=== PATIENT | male | born 1995 | race Caucasian/White ===

== ENCOUNTER 2019-07-30 09:17 | Emergency (ER) | payer OTHER, SELFPAY ==
--- NOTE | 2019-07-30 10:17 | EDPHYS ---
Physician Documentation [facility] Name: Jean Carlos Velazquez Age: 23 yrs Sex: Male : 1995 Arrival Date: 07/30/2019 Time: 09:20 Bed 23 Private MD: ED Physician Ruddy Bach HPI: 07/30 07:18 This 23 yrs old Male presents to ER via Ambulatory with complaints of Rash. kdr 07:18 The patient's rash thought to be caused by an unknown cause, Bilateral groin. The rash kdr is located on the right femoral area and left femoral area. The rash can be described as erythematous, macular. Onset: The symptoms/episode began/occurred gradually, 2 week(s) ago. Associated signs and symptoms: Pertinent positives: None. Pertinent negatives: None. Severity of symptoms: At their worst the symptoms were mild in the emergency department the symptoms are unchanged. Treatment given at home: None. The patient has not experienced similar symptoms in the past. The patient has not recently seen a physician. Historical: - Allergies: 07/29 09:57 No Known Allergies; ss - Home Meds: 09:57 None [Active]; ss - PMHx: 09:57 None; ss - PSHx: 09:57 knee repair; ss - Immunization history:: Adult Immunizations up to date. - Social history:: Smoking status: Patient denies any tobacco usage or history of. ROS: 07/30 07:18 Constitutional: Negative for fever, chills, and weight loss. kdr Skin: Positive for rash. Exam: 07:18 Male : Normal genitalia with no discharge or lesions. kdr 07:18 Skin: rash a mild rash is noted, rash can be described as erythematous, macular, Tinea cruris . Vital Signs: 07/29 09:56 BP 124 / 76; Pulse 62; Resp 16; Temp 98.9(TE); Pulse Ox 100% on R/A; Weight 90.72 kg; ss Height 5 ft. 11 in. (180.34 cm); Pain 0/10; 09:56 Body Mass Index 27.89 (90.72 kg, 180.34 cm) MDM: 10:16 Patient medically screened. kdr 07/30 07:18 Data reviewed: vital signs, nurses notes. Counseling: I had a detailed discussion with kdr the patient and/or guardian regarding: the historical points, exam findings, and any diagnostic results supporting the discharge/admit diagnosis, the need for outpatient follow up. Administered Medications: No medications were administered Disposition: 07/30/19 10:16 Discharged to Home. Impression: Tinea cruris. - Condition is Stable. - Discharge Instructions: Jock Itch, [id number]. - Prescriptions for terbinafine HCl 1 % Topical cream - apply 1 application by TOPICAL route 2 times per day for 7 days; 1 tube. - Medication Reconciliation Form, Thank You Letter, Antibiotic Education form. - Follow up: Private Physician; When: 2 - 3 days; Reason: If symptoms return, Further diagnostic work-up, Recheck today's complaints, Continuance of care, Re-evaluation by your physician. - Problem is new. - Symptoms are unchanged. Signatures: Ruddy Bach MD MD kdr Sol Salmeron RN RN ss Corrections: (The following items were deleted from the chart) 07/29 10:29 10:16 07/30/2019 10:16 Discharged to Home. Impression: Tinea cruris. Condition is ss Stable. Forms are Medication Reconciliation Form, Thank You Letter, Antibiotic Education, Prescription Opioid Use. Follow up: Private Physician; When: 2 - 3 days; Reason: If symptoms return, Further diagnostic work-up, Recheck today's complaints, Continuance of care, Re-evaluation by your physician. Problem is new. Symptoms are unchanged. kdr
--- NOTE | 2019-07-30 10:17 | ER ---
Nurse's Notes [facility] Name: Jean Carlos Velazquez Age: 23 yrs Sex: Male : 1995 Arrival Date: 07/30/2019 Time: 09:20 Bed 23 Private MD: Diagnosis: Tinea cruris Presentation: 07/29 09:56 Chief complaint: Patient states: Rash to groin that began 2 weeks ago. Coronavirus ss screen: Proceed with normal triage. Patient denies a cough. Patient denies shortness of breath or difficulty breathing. Patient denies measured and/or subjective temperature greater than 100.4F prior to today's visit. Patient denies travel on a cruise ship or to a country the [facility] currently lists as an affected area. Patient denies contact with known and/or suspected case of COVID-19. Ebola Screen: Patient denies exposure to infectious person. Patient denies travel to an Ebola-affected area in the 21 days before illness onset. Initial Sepsis Screen: Does the patient meet any 2 criteria? No. Patient's initial sepsis screen is negative. Does the patient have a suspected source of infection? No. Patient's initial sepsis screen is negative. Risk Assessment: Do you want to hurt yourself or someone else? Patient reports no desire to harm self or others. Onset of symptoms was June 2019. 09:56 Method Of Arrival: Ambulatory ss 09:56 Acuity: BAMBI 5 ss Historical: - Allergies: 09:57 No Known Allergies; ss - Home Meds: 09:57 None [Active]; ss - PMHx: 09:57 None; ss - PSHx: 09:57 knee repair; ss - Immunization history:: Adult Immunizations up to date. - Social history:: Smoking status: Patient denies any tobacco usage or history of. Screenin:58 Abuse screen: Denies threats or abuse. Denies injuries from another. Nutritional ss screening: No deficits noted. Tuberculosis screening: Never had TB. Assessment: 09:58 General: Appears in no apparent distress. comfortable, Behavior is calm, cooperative, ss Denies fever, feeling ill, fatigue, chills. Pain: Denies pain. Neuro: Level of Consciousness is awake, alert, obeys commands, Oriented to person, place, time, situation. Cardiovascular: Capillary refill < 3 seconds is brisk in bilateral fingers. Respiratory: Airway is patent Respiratory effort is even, unlabored, Respiratory pattern is regular, symmetrical. GI: Patient currently denies diarrhea, nausea, vomiting. EENT: Oral mucosa is moist. Derm: Skin is healthy with good turgor, Skin is pink, warm \T\ dry. normal, Reports itchy rash to R groin that began after being on a boat 2 weeks ago. Pt reports while sweating at work the rash tends to get worse. Musculoskeletal: Circulation, motion, and sensation intact. Range of motion: intact in all extremities. Vital Signs: 09:56 BP 124 / 76; Pulse 62; Resp 16; Temp 98.9(TE); Pulse Ox 100% on R/A; Weight 90.72 kg; ss Height 5 ft. 11 in. (180.34 cm); Pain 0/10; 09:56 Body Mass Index 27.89 (90.72 kg, 180.34 cm) ED Course: 09:20 Patient arrived in ED. mr 09:53 [facility]. snw 09:53 Ruddy Bach MD is Attending Physician. snw 09:57 Triage completed. ss 09:57 Arm band placed on left wrist. ss 09:58 Patient has correct armband on for positive identification. Bed in low position. Call ss light in reach. 10:28 Sol Salmeron, RN is Primary Nurse. ss 10:28 No provider procedures requiring assistance completed. Patient did not have IV access ss during this emergency room visit. Administered Medications: No medications were administered Outcome: 10:16 Discharge ordered by . kdr 10:28 Discharged to home ambulatory. ss 10:28 Condition: good 10:28 Discharge instructions given to patient, Instructed on discharge instructions, follow up and referral plans. medication usage, Demonstrated understanding of instructions, follow-up care, medications, Prescriptions given X 1. 10:29 Patient left the ED. ss Signatures: Ruddy Bach MD MD kdr Therrien, Shelly, FNP-C FNP-Bryan Almaz Kat mr Sol Salmeron, RN RN ss
[2019-07-30 10:34] VITALS: BP 124/76; TEMP 98.9; O2SAT 100
== END 2019-07-30 10:29 | disposition home or self-care (01) ==
LOC: ER 09:17
DX: B35.6 Tinea cruris (principal)
CPT/HCPCS: 99282

== ENCOUNTER 2019-11-22 10:25 | Emergency (ER) | payer SELFPAY ==
--- NOTE | 2019-11-22 11:42 | EDPHYS ---
Physician Documentation [facility] Name: Jean Carlos Velazquez Age: 24 yrs Sex: Male : 1995 Arrival Date: 11/22/2019 Time: 10:27 Bed Waiting Private MD: ED Physician Ruddy Bach HPI: 11/21 11:41 This 24 yrs old Male presents to ER via Ambulatory with complaints of snw Toothache. 11:41 The patient presents with pain, swelling. The problem is located in the gums and right snw buccal mucosa. Onset: The symptoms/episode began/occurred gradually, 3 day(s) ago, and became worse this morning, and became persistent. Duration: The symptoms are continuous. Associated signs and symptoms: Pertinent positives: fever, swelling, facial. Severity of symptoms: At their worst the symptoms were moderate, this morning, severe. The patient has experienced a previous episode, many years ago. The patient has not recently seen a physician. Historical: - Allergies: 10:48 No Known Allergies; ll1 - PMHx: 10:48 None; ll1 - PSHx: 10:48 knee repair; foot sx; ll1 - Immunization history:: Flu vaccine is not up to date. - Social history:: Smoking status: Patient reports the use of cigarette tobacco products, denies chronic smoking, but will smoke occasionally. ROS: 11:41 Constitutional: Negative for fever, chills, and weight loss, Eyes: Negative for injury, snw pain, redness, and discharge, Neck: Negative for injury, pain, and swelling, Cardiovascular: Negative for chest pain, palpitations, and edema, Respiratory: Negative for shortness of breath, cough, wheezing, and pleuritic chest pain, Abdomen/GI: Negative for abdominal pain, nausea, vomiting, diarrhea, and constipation, Back: Negative for injury and pain, : Negative for injury, bleeding, discharge, and swelling, MS/Extremity: Negative for injury and deformity, Skin: Negative for injury, rash, and discoloration, Neuro: Negative for headache, weakness, numbness, tingling, and seizure, Psych: Negative for depression, anxiety, suicide ideation, homicidal ideation, and hallucinations. 11:41 ENT: Positive for dental pain, of the right cheek. Exam: 11:45 Constitutional: This is a well developed, well nourished patient who is awake, alert, snw and in no acute distress. Head/Face: Normocephalic, atraumatic. Eyes: Pupils equal round and reactive to light, extra-ocular motions intact. Lids and lashes normal. Conjunctiva and sclera are non-icteric and not injected. Cornea within normal limits. Periorbital areas with no swelling, redness, or edema. Neck: Trachea midline, no thyromegaly or masses palpated, and no cervical lymphadenopathy. Supple, full range of motion without nuchal rigidity, or vertebral point tenderness. No Meningismus. Chest/axilla: Normal chest wall appearance and motion. Nontender with no deformity. No lesions are appreciated. Cardiovascular: Regular rate and rhythm with a normal S1 and S2. No gallops, murmurs, or rubs. Normal PMI, no JVD. No pulse deficits. Respiratory: Lungs have equal breath sounds bilaterally, clear to auscultation and percussion. No rales, rhonchi or wheezes noted. No increased work of breathing, no retractions or nasal flaring. Abdomen/GI: Soft, non-tender, with normal bowel sounds. No distension or tympany. No guarding or rebound. No evidence of tenderness throughout. Back: No spinal tenderness. No costovertebral tenderness. Full range of motion. Skin: Warm, dry with normal turgor. Normal color with no rashes, no lesions, and no evidence of cellulitis. MS/ Extremity: Pulses equal, no cyanosis. Neurovascular intact. Full, normal range of motion. Neuro: Awake and alert, GCS 15, oriented to person, place, time, and situation. Cranial nerves II-XII grossly intact. Motor strength 5/5 in all extremities. Sensory grossly intact. Cerebellar exam normal. Normal gait. 11:45 ENT: External ear(s): are unremarkable, Ear canal(s): are normal, Nose: is normal, Mouth: Oral mucosa: pink and intact, Gums: normal with healthy appearance, swollen, on the gums and right buccal mucosa, Tongue: is normal, abscess, is not appreciated, drooling, is not appreciated, Voice: is normal. Vital Signs: 10:48 BP 129 / 81; Pulse 73; Resp 17; Temp 98.4; Pulse Ox 100% ; Weight 92.99 kg; Height 5 ll1 ft. 11 in. (180.34 cm); Pain 6/10; 10:48 Body Mass Index 28.59 (92.99 kg, 180.34 cm) ll1 MDM: 11:41 Patient medically screened. snw 11:44 Data reviewed: vital signs, nurses notes. Data interpreted: Pulse oximetry: on room air snw is 100 %. Interpretation: normal. Counseling: I had a detailed discussion with the patient and/or guardian regarding: the historical points, exam findings, and any diagnostic results supporting the discharge/admit diagnosis, the presence of at least one elevated blood pressure reading (>120/80) during this emergency department visit, the need for outpatient follow up, to return to the emergency department if symptoms worsen or persist or if there are any questions or concerns that arise at home. Special discussion: I have referred the patient to see his PCP for further evaluation of high blood pressure. Based on the history and exam findings, there is no indication for further emergent testing or inpatient evaluation. I discussed with the patient/guardian the need to see a dentist for further evaluation of the symptoms. I discussed with the patient/guardian the need to see the primary care provider for further evaluation of the symptoms. Administered Medications: 11:40 Drug: Clindamycin 300 mg Route: PO; ll1 11:46 Follow up: Response: No adverse reaction ll1 11:40 Drug: TORadol 30 mg Route: IM; Site: right deltoid; ll1 11:46 Follow up: Response: No adverse reaction; Pain is decreased; RASS: Alert and Calm (0) ll1 11:40 Drug: [place] 5 mg-325 mg 1 tabs {Note: RASS 0.} Route: PO; ll1 11:46 Follow up: Response: No adverse reaction; Pain is decreased; RASS: Alert and Calm (0) ll1 Disposition: 11/22 09:22 Co-signature as Attending Physician, Ruddy Bach MD I agree with the assessment and kdr plan of care. Disposition: 11/22/19 11:41 Discharged to Home. Impression: Dental caries, Diseases of pulp and periapical tissues. - Condition is Stable. - Discharge Instructions: Dental Pain, Steps to Quit Smoking, Smoking Hazards, Diet and Dental Disease, Cryotherapy, Preventive Dental Care, Adult. - Prescriptions for chlorhexidine gluconate 0.12 % Mucous Membrane mouthwash - place 15 milliliter by MUCOUS MEMBRANE route 2 times per day after brushing teeth, swish in mouth for 30 seconds then spit out; 480 milliliter. Clindamycin HCl 300 mg Oral Capsule - take 1 capsule by ORAL route every 6 hours for 10 days; 40 capsule. Diclofenac Sodium 75 mg Oral Tablet Sustained Release - take 1 tablet by ORAL route 2 times per day; 30 tablet. - Work release form, Medication Reconciliation Form, Thank You Letter, Antibiotic Education, Prescription Opioid Use form. - Follow up: Emergency Department; When: As needed; Reason: Worsening of condition. Follow up: Private Physician; When: 1 - 2 days; Reason: Recheck today's complaints, Continuance of care. Signatures: Ruddy Bach MD MD kdr Waters, Shelly, FNP-C FNP-Brittani Roth RN RN ll1 Corrections: (The following items were deleted from the chart) 11/21 11:46 11:41 11/22/2019 11:41 Discharged to Home. Impression: Dental caries; Diseases of pulp ll1 and periapical tissues. Condition is Stable. Discharge Instructions: Dental Pain, Steps to Quit Smoking, Smoking Hazards, Diet and Dental Disease, Preventive Dental Care, Adult, Cryotherapy. Prescriptions for chlorhexidine gluconate 0.12 % Mucous Membrane mouthwash - place 15 milliliter by MUCOUS MEMBRANE route 2 times per day after brushing teeth, swish in mouth for 30 seconds then spit out; 480 milliliter, Clindamycin HCl 300 mg Oral Capsule - take 1 capsule by ORAL route every 6 hours for 10 days; 40 capsule, Diclofenac Sodium 75 mg Oral Tablet Sustained Release - take 1 tablet by ORAL route 2 times per day; 30 tablet. and Forms are Work release form, Medication Reconciliation Form, Thank You Letter, Antibiotic Education, Prescription Opioid Use. Follow up: Emergency Department; When: As needed; Reason: Worsening of condition. Follow up: Private Physician; When: 1 - 2 days; Reason: Recheck today's complaints, Continuance of care. snw
--- NOTE | 2019-11-22 11:42 | ER ---
Nurse's Notes [facility] Name: Jean Carlos Velazquez Age: 24 yrs Sex: Male : 1995 Arrival Date: 11/22/2019 Time: 10:27 Bed Waiting Private MD: Diagnosis: Dental caries;Diseases of pulp and periapical tissues Presentation: 11/21 10:48 Chief complaint: Patient states: Right upper jaw tooth pain for 3 days. Had fever 100.1 ll1 the first day. States his gums are swollen and he has little cuts in his mouth. Coronavirus screen: Client denies travel out of the [place] in the last 14 days. At this time, the client does not indicate any symptoms associated with coronavirus-19. Ebola Screen: Patient denies travel to an Ebola-affected area in the 21 days before illness onset. Initial Sepsis Screen: Does the patient meet any 2 criteria? No. Patient's initial sepsis screen is negative. Risk Assessment: Do you want to hurt yourself or someone else? Patient reports no desire to harm self or others. Onset of symptoms was November 20, 2019. 10:48 Method Of Arrival: Ambulatory ll1 10:48 Acuity: BAMBI 4 ll1 11:39 Initial Sepsis Screen: Does the patient have a suspected source of infection? Yes: ll1 Other: tooth pain. Historical: - Allergies: 10:48 No Known Allergies; ll1 - PMHx: 10:48 None; ll1 - PSHx: 10:48 knee repair; foot sx; ll1 - Immunization history:: Flu vaccine is not up to date. - Social history:: Smoking status: Patient reports the use of cigarette tobacco products, denies chronic smoking, but will smoke occasionally. Screenin:38 Abuse screen: Denies threats or abuse. Nutritional screening: No deficits noted. ll1 Tuberculosis screening: No symptoms or risk factors identified. Fall Risk None identified. Total Freeman Fall Scale indicates No Risk (0-24 pts). Assessment: 11:36 General: Appears in no apparent distress. Behavior is calm, cooperative. Pain: ll1 Complains of pain in R upper jaw Pain currently is 6 out of 10 on a pain scale. Quality of pain is described as aching. Neuro: No deficits noted. Cardiovascular: No deficits noted. Respiratory: No deficits noted. EENT: Oral mucosa is moist. Right upper jaw tooth pain. Redness to gums, Reports small cuts to inner mouth. . Reports. Vital Signs: 10:48 BP 129 / 81; Pulse 73; Resp 17; Temp 98.4; Pulse Ox 100% ; Weight 92.99 kg; Height 5 ll1 ft. 11 in. (180.34 cm); Pain 6/10; 10:48 Body Mass Index 28.59 (92.99 kg, 180.34 cm) ll1 ED Course: 10:27 Patient arrived in ED. ds1 10:48 Arm band placed on. ll1 10:50 Triage completed. ll1 11:19 Baylee Rush [facility]-C [facility]. snw 11:19 Ruddy Bach MD is Attending Physician. snw 11:39 Patient has correct armband on for positive identification. Call light in reach. Side ll1 rails up X 1. Cardiac monitoring not applicable on this patient. 11:39 No provider procedures requiring assistance completed. Patient did not have IV access ll1 during this emergency room visit. Administered Medications: 11:40 Drug: Clindamycin 300 mg Route: PO; ll1 11:46 Follow up: Response: No adverse reaction ll1 11:40 Drug: TORadol 30 mg Route: IM; Site: right deltoid; ll1 11:46 Follow up: Response: No adverse reaction; Pain is decreased; RASS: Alert and Calm (0) ll1 11:40 Drug: [place] 5 mg-325 mg 1 tabs {Note: RASS 0.} Route: PO; ll1 11:46 Follow up: Response: No adverse reaction; Pain is decreased; RASS: Alert and Calm (0) 1 Outcome: 11:41 Discharge ordered by . snw 11:45 Discharged to home ambulatory. ll1 11:45 Condition: stable 11:45 Discharge instructions given to patient, Instructed on discharge instructions, follow up and referral plans. medication usage, Demonstrated understanding of instructions, follow-up care, medications, Prescriptions given X 3. 11:47 Patient left the ED. ll1 Signatures: Baylee Rush FNP-C FNP-Violetta Oliveira ds1 Brittani Sandoval RN RN ll1
[2019-11-22] MEDS ORDERED: HYDROCODONE/APAP 5/325 MG TAB ONE (11:46)
[2019-11-22] MEDS ORDERED: KETOROLAC 30 MG/ML INJ ONE (11:47)
[2019-11-22 11:52] VITALS: BP 129/81; TEMP 98.4; O2SAT 100
== END 2019-11-22 11:47 | disposition home or self-care (01) ==
LOC: ER 10:25
DX: K02.9 Dental caries, unspecified (principal); K04.90 Unspecified diseases of pulp and periapical tissues; F17.210 Nicotine dependence, cigarettes, uncomplicated
CPT/HCPCS: 96372; 99283

== ENCOUNTER 2020-10-13 14:29 | Emergency (ER) | payer SELFPAY ==
[2020-10-13 16:31] LABS: Urine Bacteria <20 /HPF (NONE SEEN); Urine Mucus LIGHT /HPF (NONE SEEN); Urine RBC <5 /HPF (NONE SEEN)
--- NOTE | 2020-10-13 16:49 | EDPHYS ---
Physician Documentation [facility] Name: Jean Carlos Velazquez Age: 24 yrs Sex: Male : 1995 Arrival Date: 10/13/2020 Time: 14:33 Bed DIS13 Private MD: ED Physician Neri Garza HPI: 10/13 16:24 This 24 yrs old Male presents to ER via Ambulatory with complaints of Penile kb Problem. 16:24 The patient presents with penile itching. Onset: The symptoms/episode began/occurred 2 kb week(s) ago. Modifying factors: The symptoms are alleviated by nothing, the symptoms are aggravated by nothing. Associated signs and symptoms: Pertinent positives: penile itching. Severity of symptoms: At their worst the symptoms were mild, moderate, in the emergency department the symptoms are unchanged. The patient has not experienced similar symptoms in the past. The patient has not recently seen a physician. Historical: - Allergies: 15:09 No Known Allergies; kg - Home Meds: 15:09 None [Active]; kg - PMHx: 15:09 None; kg - PSHx: 15:09 None; kg - Immunization history:: Adult Immunizations not up to date, Client reports having NOT received the Covid vaccine. - Social history:: Smoking status: Reported history of juuling and/or vaping. Patient uses alcohol, weekly. ROS: 16:23 Constitutional: Negative for fever, chills, and weight loss. kb 16:23 : Positive for penile itching. 16:23 All other systems are negative. Exam: 16:24 Constitutional: This is a well developed, well nourished patient who is awake, alert, kb and in no acute distress. Head/Face: Normocephalic, atraumatic. ENT: Moist Mucous membranes Respiratory: Respirations even and unlabored. No increased work of breathing, no retractions or nasal flaring. MS/ Extremity: Pulses equal, no cyanosis. Neurovascular intact. Full, normal range of motion. Neuro: Awake and alert, GCS 15, oriented to person, place, time, and situation. Moves all extremities. Normal gait. Psych: Awake, alert, with orientation to person, place and time. Behavior, mood, and affect are within normal limits. 16:49 Skin: rash a mild rash is noted, rash can be described as erythematous, on the groin. kb Vital Signs: 15:07 BP 125 / 74; Pulse 68; Resp 20; Temp 99.0(TE); Pulse Ox 100% on R/A; Weight 95.25 kg kg (R); Height 6 ft. 0 in. (182.88 cm) (R); Pain 5/10; 15:07 Body Mass Index 28.48 (95.25 kg, 182.88 cm) kg MDM: 15:04 Patient medically screened. 16:23 Data reviewed: vital signs, nurses notes. Data interpreted: Pulse oximetry: on room air kb is 100 %. Interpretation: normal. Counseling: I had a detailed discussion with the patient and/or guardian regarding: the historical points, exam findings, and any diagnostic results supporting the discharge/admit diagnosis, lab results, the need for outpatient follow up, a family practitioner, to return to the emergency department if symptoms worsen or persist or if there are any questions or concerns that arise at home. 10/13 15:04 Order name: Urine Microscopic Only 10/13 15:05 Order name: Urine Microscopic Only; Complete Time: 16:41 EDND 10/13 15:04 Order name: Urine Dipstick-Ancillary (obtain specimen); Complete Time: 16:07 10/13 16:32 Order name: Urine Culture EDMS Administered Medications: No medications were administered Disposition: 17:29 Co-signature as Attending Physician, Neri Garza MD I agree with the assessment and rn plan of care. Attestation: The patient's history, exam findings, diagnostics, and a summary of any interventions or procedures was reviewed in detail with Amy WALKER. Disposition Summary: 10/13/20 16:49 Discharge Ordered Location: Home kb Condition: Stable kb Diagnosis - Tinea cruris kb Followup: kb - With: Emergency Department - When: As needed - Reason: Worsening of condition Followup: kb - With: Private Physician - When: 2 - 3 days - Reason: Recheck today's complaints, Continuance of care, Re-evaluation by your physician Discharge Instructions: - Discharge Summary Sheet kb - Jock Itch, [id number] kb Forms: - Medication Reconciliation Form kb - Thank You Letter kb - Antibiotic Education kb - Prescription Opioid Use kb Signatures: Dispatcher [employer] EDMS Amy Fernandes FNP-C FNP-Neri Mai MD MD rn Graham, Kristen, RN RN kg Corrections: (The following items were deleted from the chart) 16:50 16:24 Constitutional: This is a well developed, well nourished patient who is awake, kb alert, and in no acute distress. Head/Face: Normocephalic, atraumatic. ENT: Moist Mucous membranes Respiratory: Respirations even and unlabored. No increased work of breathing, no retractions or nasal flaring. Skin: Warm, dry with normal turgor. Normal color. MS/ Extremity: Pulses equal, no cyanosis. Neurovascular intact. Full, normal range of motion. Neuro: Awake and alert, GCS 15, oriented to person, place, time, and situation. Moves all extremities. Normal gait. Psych: Awake, alert, with orientation to person, place and time. Behavior, mood, and affect are within normal limits. kb
--- NOTE | 2020-10-13 16:49 | ER ---
Nurse's Notes [facility] Name: Jean Carlos Velazquez Age: 24 yrs Sex: Male : 1995 Arrival Date: 10/13/2020 Time: 14:33 Bed DIS13 Private MD: Diagnosis: Tinea cruris Presentation: 10/13 15:07 Chief complaint: Patient states: Itching and burning penis x 2 wks. Coronavirus screen: kg Client denies travel out of the [place] in the last 14 days. At this time, unable to obtain information related to travel outside the [place] At this time, the client does not indicate any symptoms associated with coronavirus-19. Ebola Screen: Patient negative for fever greater than or equal to 101.5 degrees Fahrenheit, and additional compatible Ebola Virus Disease symptoms Patient denies exposure to infectious person. Patient denies travel to an Ebola-affected area in the 21 days before illness onset. Initial Sepsis Screen: Does the patient meet any 2 criteria? No. Patient's initial sepsis screen is negative. Does the patient have a suspected source of infection? No. Patient's initial sepsis screen is negative. Risk Assessment: Do you want to hurt yourself or someone else? Patient reports no desire to harm self or others. Onset of symptoms was September 29, 2020. 15:07 Method Of Arrival: Ambulatory kg 15:07 Acuity: BAMBI 4 kg Triage Assessment: 15:09 General: Appears in no apparent distress. Behavior is calm, cooperative, appropriate kg for age, quiet. Pain: Complains of pain in penis, groin Pain currently is 5 out of 10 on a pain scale. Quality of pain is described as itching. Historical: - Allergies: 15:09 No Known Allergies; kg - Home Meds: 15:09 None [Active]; kg - PMHx: 15:09 None; kg - PSHx: 15:09 None; kg - Immunization history:: Adult Immunizations not up to date, Client reports having NOT received the Covid vaccine. - Social history:: Smoking status: Reported history of juuling and/or vaping. Patient uses alcohol, weekly. Screenin:10 Abuse screen: Denies threats or abuse. Denies injuries from another. Nutritional kg screening: No deficits noted. Tuberculosis screening: No symptoms or risk factors identified. Fall Risk None identified. Assessment: 17:06 General: Appears in no apparent distress. comfortable, Behavior is calm, cooperative. ss Neuro: Level of Consciousness is awake, alert, obeys commands, Oriented to person, place, time, situation. Respiratory: Airway is patent Respiratory effort is even, unlabored, Respiratory pattern is regular, symmetrical. : Reports penile itching. EENT: Oral mucosa is moist. Derm: Skin is intact, is healthy with good turgor, Skin is dry, Skin is pink, warm \T\ dry. normal. Musculoskeletal: Circulation, motion, and sensation intact. Range of motion: intact in all extremities, Swelling absent. Vital Signs: 15:07 BP 125 / 74; Pulse 68; Resp 20; Temp 99.0(TE); Pulse Ox 100% on R/A; Weight 95.25 kg kg (R); Height 6 ft. 0 in. (182.88 cm) (R); Pain 5/10; 15:07 Body Mass Index 28.48 (95.25 kg, 182.88 cm) kg ED Course: 14:33 Patient arrived in ED. ds1 14:54 [facility] kb 14:54 Neri Garza MD is Attending Physician. kb 15:09 Triage completed. kg 15:09 Arm band placed on. kg 15:10 Patient has correct armband on for positive identification. kg 16:51 Sol Salmeron, AMANDA is Primary Nurse. ss 17:06 No provider procedures requiring assistance completed. Patient did not have IV access ss during this emergency room visit. Administered Medications: No medications were administered Outcome: 16:49 Discharge ordered by . kb 17:07 Discharged to home ambulatory, with significant other. ss 17:07 Condition: good 17:07 Discharge instructions given to patient, Instructed on discharge instructions, follow up and referral plans. Demonstrated understanding of instructions, follow-up care. 17:07 Patient left the ED. ss Signatures: Amy Fernandes FNP-C FNP-Violetta Chua ds1 Sol Salmeron, AMANDA RN ss Mar Farooq RN RN kg
[2020-10-13 17:11] VITALS: BP 125/74; TEMP 99; O2SAT 100
[2020-10-16 14:55] LABS: Urine Blood Negative (Negative); Urine Glucose Negative (Negative); Urine Protein Negative (Negative); Urine Specific Gravity 1.025 (1.005-1.030)
== END 2020-10-13 17:07 | disposition home or self-care (01) ==
LOC: ER 14:29
DX: B35.6 Tinea cruris (principal)
CPT/HCPCS: 81003; 81015; 87086; 87088; 99281

== ENCOUNTER 2021-05-08 15:55 | Emergency (ER) | payer SELFPAY ==
[2021-05-08 18:15] LABS: SARS-COV-2 RT PCR NEGATIVE (NEGATIVE)
--- NOTE | 2021-05-08 20:08 | ER ---
Nurse's Notes [facility] Name: Jean Carlos Velazquez Age: 25 yrs Sex: Male : 1995 Arrival Date: 05/08/2021 Time: 16:02 Bed 21 Private MD: Diagnosis: Influenza due to identified novel influenza A virus Presentation: 05/08 16:18 Chief complaint: Patient states: Sore throat, cough, congestion, body aches, fever, ALEJANDRO ll1 since Tuesday. No N/V/D. Coronavirus screen: Vaccine status: Patient reports being unvaccinated. Client denies travel out of the [place] in the last 14 days. congestion, cough unrelated to allergies, fatigue, fever, headache, sore throat, Client presents with at least one sign or symptom that may indicate coronavirus-19. Standard/surgical mask placed on the client. Ebola Screen: Patient denies travel to an Ebola-affected area in the 21 days before illness onset. Initial Sepsis Screen: Does the patient meet any 2 criteria? No. Patient's initial sepsis screen is negative. Does the patient have a suspected source of infection? Yes: Productive cough/pneumonia. Risk Assessment: Do you want to hurt yourself or someone else? Patient reports no desire to harm self or others. Onset of symptoms was May 05, 2021. 16:18 Method Of Arrival: Ambulatory ll1 16:18 Acuity: BAMBI 4 ll1 Triage Assessment: 16:21 General: Appears in no apparent distress. Behavior is calm, cooperative, appropriate ll1 for age. Pain: Complains of pain in throat Quality of pain is described as aching. EENT: Reports nasal congestion pain when swallowing. Neuro: No deficits noted. Cardiovascular: No deficits noted. Respiratory: Reports cough that is. Historical: - Allergies: 16:21 No Known Allergies; ll1 - PMHx: 16:21 None; ll1 - PSHx: 16:21 None; ll1 - Immunization history:: Client reports having NOT received the Covid vaccine. Flu vaccine status is unknown. - Social history:: Smoking status: Reported history of juuling and/or vaping. Screenin:30 Abuse screen: Denies threats or abuse. Nutritional screening: No deficits noted. bb Tuberculosis screening: No symptoms or risk factors identified. Fall Risk None identified. Assessment: 17:38 Reassessment: No changes from previously documented assessment. Patient and/or family ll1 updated on plan of care and expected duration. Pain level reassessed. Patient is alert, oriented x 3, equal unlabored respirations, skin warm/dry/pink. 20:30 Reassessment: Patient is alert, oriented x 3, equal unlabored respirations, skin bb warm/dry/pink. pt seen by this RN at discharge pt verbalized understanding of and agrees to plan of care discharge instructions given pt ambulated with steady gait to exit accompanied by family. Vital Signs: 16:18 BP 135 / 89; Pulse 72; Resp 17; Temp 99.0; Pulse Ox 99% ; Weight 99.79 kg; Height 6 ft. ll1 0 in. (182.88 cm); Pain 8/10; 16:18 Body Mass Index 29.84 (99.79 kg, 182.88 cm) ll1 ED Course: 16:02 Patient arrived in ED. ja2 16:20 Triage completed. ll1 16:21 Arm band placed on. ll1 16:48 Khoi Bolden PA is PHCP. cp 16:48 Tiffany pU MD is Attending Physician. cp 20:30 Patient has correct armband on for positive identification. bb 20:30 No provider procedures requiring assistance completed. Patient did not have IV access bb during this emergency room visit. Administered Medications: No medications were administered Outcome: 20:07 Discharge ordered by MD. cp 20:30 Discharged to home ambulatory, with family. bb 20:30 Condition: stable 20:30 Discharge instructions given to patient, Instructed on discharge instructions, follow up and referral plans. medication usage, Demonstrated understanding of instructions, follow-up care, medications, Prescriptions given X 1. 20:32 Patient left the ED. bb Signatures: Kaye Dorman RN RN bb Khoi Bolden PA PA cp Brittani Sandoval RN RN ll1 Elvira Sigala 2 Corrections: (The following items were deleted from the chart) 16:22 16:18 Acuity: BAMBI 3 ll1 ll1
--- NOTE | 2021-05-08 20:08 | EDPHYS ---
Physician Documentation [facility] Name: Jean Carlos Velazquez Age: 25 yrs Sex: Male : 1995 Arrival Date: 05/08/2021 Time: 16:02 Bed 21 Private MD: ED Physician Tiffany Up HPI: 05/08 17:00 This 25 yrs old Male presents to ER via Ambulatory with complaints of Sore Throat, cp Cough. 17:00 The patient presents with sore throat. cp 17:00 The patient or guardian reports cough, with no sputum, flu symptoms, body aches, cp headache, fever. 17:00 Onset: The symptoms/episode began/occurred 3 day(s) ago. cp Historical: - Allergies: 16:21 No Known Allergies; ll1 - PMHx: 16:21 None; ll1 - PSHx: 16:21 None; ll1 - Immunization history:: Client reports having NOT received the Covid vaccine. Flu vaccine status is unknown. - Social history:: Smoking status: Reported history of juuling and/or vaping. ROS: 17:05 Constitutional: Positive for body aches, Negative for fever, poor PO intake. cp 17:05 Eyes: Negative for injury, pain, redness, and discharge. cp 17:05 ENT: Positive for sore throat, Negative for drainage from ear(s), ear pain, difficulty swallowing, difficulty handling secretions. 17:05 Neck: Negative for pain with movement, pain at rest, stiffness. 17:05 Cardiovascular: Negative for chest pain. 17:05 Respiratory: Positive for cough, with no reported sputum, Negative for shortness of breath, wheezing. 17:05 Abdomen/GI: Negative for abdominal pain, vomiting, diarrhea, constipation. 17:05 Skin: Negative for rash. 17:05 Neuro: Positive for headache, Negative for altered mental status, weakness. 17:05 All other systems are negative. Exam: 17:10 Constitutional: The patient appears in no acute distress, alert, awake, non-toxic, well cp developed, well nourished. 17:10 Head/Face: Normocephalic, atraumatic. cp 17:10 Eyes: Periorbital structures: appear normal, Conjunctiva: normal, no exudate, no injection, Sclera: no appreciated abnormality, Lids and lashes: appear normal, bilaterally. 17:10 ENT: External ear(s): are unremarkable, Ear canal(s): are normal, clear, TM's: dullness, bilaterally, Nose: is normal, Mouth: Lips: moist, Oral mucosa: moist, Posterior pharynx: Airway: no evidence of obstruction, patent, Tonsils: no enlargement, no exudate, swelling, is not appreciated, erythema, that is mild, exudate, is not appreciated. 17:10 Neck: ROM/movement: is normal, is supple, without pain, no range of motions limitations, no meningismus, Lymph nodes: no appreciated lymphadenopathy. 17:10 Chest/axilla: Inspection: normal. 17:10 Cardiovascular: Rate: normal, Rhythm: regular. 17:10 Respiratory: the patient does not display signs of respiratory distress, Respirations: normal, no use of accessory muscles, no retractions, labored breathing, is not present, Breath sounds: decreased breath sounds, are not appreciated, stridor, is not appreciated, + upper airway congestion. wheezing: is not appreciated. 17:10 Abdomen/GI: Exam negative for discomfort, distension, guarding, Inspection: abdomen appears normal. Vital Signs: 16:18 BP 135 / 89; Pulse 72; Resp 17; Temp 99.0; Pulse Ox 99% ; Weight 99.79 kg; Height 6 ft. ll1 0 in. (182.88 cm); Pain 8/10; 16:18 Body Mass Index 29.84 (99.79 kg, 182.88 cm) ll1 MDM: 17:00 Differential diagnosis: URI, influenza, COVID-19 group A strep tonsillitis, influenza, cp pharyngitis, tonsillitis, uvulitis, viral syndrome. 20:05 Patient medically screened. cp 20:06 Data reviewed: vital signs, nurses notes, lab test result(s). Counseling: I had a cp detailed discussion with the patient and/or guardian regarding: the historical points, exam findings, and any diagnostic results supporting the discharge/admit diagnosis, lab results, to return to the emergency department if symptoms worsen or persist or if there are any questions or concerns that arise at home. ED course: VSS. Patient appears non-toxic and no signs of respiratory distress. Will discharge to home for continued monitoring. 05/08 16:23 Order name: Strep ll1 05/08 16:23 Order name: COVID-19/FLU A+B (Document "Date of Onset" if Symptomatic); Complete Time: ll1 20:06 05/08 16:24 Order name: Group A Streptococcus Rapid Sc; Complete Time: 20:06 EDMS 05/08 17:55 Order name: Throat Culture EDMS Administered Medications: No medications were administered Disposition Summary: 05/08/21 20:07 Discharge Ordered Location: Home cp Problem: new cp Symptoms: are unchanged cp Condition: Stable cp Diagnosis - Influenza due to identified novel influenza A virus cp Followup: cp - With: Private Physician - When: 2 - 3 days - Reason: Worsening of condition Discharge Instructions: - Discharge Summary Sheet cp - Influenza, Adult cp Forms: - Medication Reconciliation Form cp - Thank You Letter cp - Antibiotic Education cp - Prescription Opioid Use cp Prescriptions: - Ibuprofen 800 mg Oral Tablet - take 1 tablet by ORAL route every 8 hours As needed take with food; 30 tablet; cp Refills: 0, Product Selection Permitted Signatures: Dispatcher [employer] EDTN Khoi Bolden PA PA cp Brittani Sandoval RN RN ll1 Corrections: (The following items were deleted from the chart) 05/09 04:59 05/08 20:00 Data reviewed: vital signs, nurses notes, lab test result(s), [facility] 05/09 04:59 05/08 20:00 Counseling: I had a detailed discussion with the patient and/or guardian cp regarding: the historical points, exam findings, and any diagnostic results supporting the discharge/admit diagnosis, lab results, to return to the emergency department if symptoms worsen or persist or if there are any questions or concerns that arise at home, cp 05/09 04:59 05/08 20:00 ED course: VSS. Patient appears non-toxic and no signs of respiratory cp distress. Will discharge to home for continued monitoring. cp
[2021-05-08 20:40] VITALS: BP 135/89; TEMP 99; O2SAT 99
== END 2021-05-08 20:32 | disposition home or self-care (01) ==
LOC: ER 15:55
DX: J10.1 Influenza due to other identified influenza virus with other respiratory manifestations (principal); Z20.822 Contact with and (suspected) exposure to COVID-19
CPT/HCPCS: 0240U; 87070; 87081; 99282

== ENCOUNTER 2023-01-22 07:59 | Emergency (ER) | payer SELFPAY ==
[2023-01-22 09:26] LABS: SARS-COV-2 RT PCR NEGATIVE (NEGATIVE)
--- NOTE | 2023-01-22 10:27 | EDPHYS ---
Physician Documentation [facility] Name: Jean Carlos Velazquez Age: 27 yrs Sex: Male : 1995 Arrival Date: 01/22/2023 Time: 07:59 Bed DIS12 Private MD: ED Physician Khoi Benítez HPI: 01/22 10:20 This 27 yrs old Black Male presents to ER via Ambulatory with complaints of Flu jamaal Symptoms. 10:20 The patient or guardian reports cough, flu symptoms, arthralgias, low-grade fever, jamaal myalgias. Onset: The symptoms/episode began/occurred 3 day(s) ago. Modifying factors: The symptoms are alleviated by nothing. the symptoms are aggravated by activity. FEVER , COUGH CONGESTION. Associated signs and symptoms: Pertinent positives: fever, nausea, rhinorrhea, sore throat. The patient reports fever, that was measured at 100 degrees Fahrenheit. Modifying factors: there are no obvious modifying factors. Severity of symptoms: At their worst the symptoms were mild moderate in the emergency department the symptoms are unchanged. The patient has experienced similar episodes in the past, a few times. Historical: - Allergies: 08:16 No Known Allergies; hb - Home Meds: 08:16 None [Active]; hb - PMHx: 08:16 None; hb - PSHx: 08:16 None; hb - Immunization history:: Adult Immunizations up to date. - Social history:: Smoking status: Patient denies any tobacco usage or history of. ROS: 10:22 Eyes: Negative for injury, pain, redness, and discharge, ENT: Negative for injury, jamaal pain, and discharge, Neck: Negative for injury, pain, and swelling, Cardiovascular: Negative for chest pain, palpitations, and edema, Abdomen/GI: Negative for abdominal pain, nausea, vomiting, diarrhea, and constipation, Back: Negative for injury and pain, : Negative for injury, bleeding, discharge, and swelling, MS/Extremity: Negative for injury and deformity, Skin: Negative for injury, rash, and discoloration, Neuro: Negative for headache, weakness, numbness, tingling, and seizure, Psych: Negative for depression, anxiety, suicide ideation, homicidal ideation, and hallucinations, Allergy/Immunology: Negative for hives, rash, and allergies, Endocrine: Negative for neck swelling, polydipsia, polyuria, polyphagia, and marked weight changes, Hematologic/Lymphatic: Negative for swollen nodes, abnormal bleeding, and unusual bruising, 10:22 Constitutional: Positive for body aches, chills, fatigue, fever, malaise, 10:22 ENT: Positive for rhinorrhea, sinus congestion, sore throat, Exam: 10:22 Constitutional: This is a well developed, well nourished patient who is awake, alert, jamaal and in no acute distress. Head/Face: Normocephalic, atraumatic. Eyes: Pupils equal round and reactive to light, extra-ocular motions intact. Lids and lashes normal. Conjunctiva and sclera are non-icteric and not injected. Cornea within normal limits. Periorbital areas with no swelling, redness, or edema. Neck: Trachea midline, no thyromegaly or masses palpated, and no cervical lymphadenopathy. Supple, full range of motion without nuchal rigidity, or vertebral point tenderness. No Meningismus. Chest/axilla: Normal chest wall appearance and motion. Nontender with no deformity. No lesions are appreciated. Cardiovascular: Regular rate and rhythm with a normal S1 and S2. No gallops, murmurs, or rubs. Normal PMI, no JVD. No pulse deficits. Respiratory: Lungs have equal breath sounds bilaterally, clear to auscultation and percussion. No rales, rhonchi or wheezes noted. No increased work of breathing, no retractions or nasal flaring. Abdomen/GI: Soft, non-tender, with normal bowel sounds. No distension or tympany. No guarding or rebound. No evidence of tenderness throughout. Back: No spinal tenderness. No costovertebral tenderness. Full range of motion. Skin: Warm, dry with normal turgor. Normal color with no rashes, no lesions, and no evidence of cellulitis. MS/ Extremity: Pulses equal, no cyanosis. Neurovascular intact. Full, normal range of motion. Neuro: Awake and alert, GCS 15, oriented to person, place, time, and situation. Cranial nerves II-XII grossly intact. Motor strength 5/5 in all extremities. Sensory grossly intact. Cerebellar exam normal. Normal gait. Psych: Awake, alert, with orientation to person, place and time. Behavior, mood, and affect are within normal limits. 10:22 ENT: Nose: nasal drainage, that is minimal, and is seen coming from both nares, that is clear, Posterior pharynx: erythema, that is mild, Vital Signs: 08:22 BP 127 / 74; Pulse 88; Resp 16; Temp 97.8(TE); Pulse Ox 100% on R/A; Weight 81.65 kg; hb Height 6 ft. 0 in. ; Pain 6/10; 08:22 Body Mass Index 24.41 (81.65 kg, 182.88 cm) hb 08:22 Pain Scale: Adult hb MDM: 08:09 Patient medically screened. [facility] 10:24 Differential diagnosis: obstructed airway, bronchitis, flu, URI, viral Infection, jamaal bacterial infection, URI, bronchitis, pneumonia. Antibiotic administration: The patient is discharged and will get outpatient antibiotics, Tamiflu, Zithromax. Differential Diagnosis sepsis. Data reviewed: vital signs, nurses notes, lab test result(s), Flu: positive. Consideration of Admission/Observation Escalation of care including admission/observation considered. I considered the following discharge prescriptions or medication management in the emergency department Medications were administered in the Emergency Department. See MAR. Test considered but Not performed: Labs: NO LABS. Historians other than the Patient: Spouse/Significant Other: . Care significantly affected by the following chronic conditions: NONE. 01/22 08:30 Order name: Strep hb 01/22 08:12 Order name: COVID-19/FLU A+B/RSV; Complete Time: 10:12 [facility] 01/22 09:18 Order name: Throat Culture EDMS Administered Medications: No medications were administered Disposition Summary: 01/22/23 10:26 Discharge Ordered Notes: Location: Home [facility] Problem: new [facility] Symptoms: have improved jamaal Condition: Stable jamaal Diagnosis - Fever, unspecified jamaal - Acute upper respiratory infection, unspecified jamaal - Influenza due to other identified influenza virus with other respiratory jamaal manifestations - FLU B Followup: jamaal - With: Private Physician - When: 2 - 3 days - Reason: Recheck today's complaints, Continuance of care, Re-evaluation by your physician Discharge Instructions: - Discharge Summary Sheet jamaal - Fever, Adult jamaal - Influenza, Adult jamaal - Pharyngitis jamaal - Tonsillitis jamaal - Upper Respiratory Infection, Adult jamaal - Tonsillitis, Huxx-or-Juxo jamaal - Cool Mist Vaporizer jamaal - Upper Respiratory Infection, Adult, [id number] jamaal - Influenza, Adult, [id number] [facility] Forms: - Medication Reconciliation Form [facility] - Thank You Letter jamaal - Antibiotic Education jamaal - Prescription Opioid Use jamaal - Patient Portal Instructions [facility] - Leadership Thank You Letter jamaal Prescriptions: - Zithromax Z-Paolo 250 mg Oral Tablet - take 1 tablet ORAL route as directed for 5 days Day 1 - take two (2) tablets [facility] one time. Day 2, 3, 4 , 5 take one (1) tablet once daily.; 6 tablet; Refills: 0, Product Selection Permitted - Tamiflu 75 mg Oral capsule - take 1 tablet ORAL route every 12 hours for 5 days; 10 tablet; Refills: 0, [facility] Product Selection Permitted Signatures: Dispatcher [employer] EDKhoi Swartz MD MD cha Baxter, Heather, RN RN
--- NOTE | 2023-01-22 10:27 | ER ---
Nurse's Notes [facility] Name: Jean Carlos Velazquez Age: 27 yrs Sex: Male : 1995 Arrival Date: 01/22/2023 Time: 07:59 Bed DIS12 Private MD: Diagnosis: Fever, unspecified;Acute upper respiratory infection, unspecified;Influenza due to other identified influenza virus with other respiratory manifestations-FLU B Presentation: 01/22 08:15 Chief complaint: Sore throat, body aches, cough, and subjective fever x 4 days. hb Coronavirus screen: Client presents with at least one sign or symptom that may indicate coronavirus-19. Provider contacted for isolation considerations. Ebola Screen: No symptoms or risks identified at this time. Initial Sepsis Screen: Does the patient meet any 2 criteria? No. Patient's initial sepsis screen is negative. Does the patient have a suspected source of infection? No. Patient's initial sepsis screen is negative. Risk Assessment: Do you want to hurt yourself or someone else? Patient reports no desire to harm self or others. Onset of symptoms was January 18, 2023. 08:15 Method Of Arrival: Ambulatory hb 08:15 Acuity: BAMBI 4 hb Historical: - Allergies: 08:16 No Known Allergies; hb - Home Meds: 08:16 None [Active]; hb - PMHx: 08:16 None; hb - PSHx: 08:16 None; hb - Immunization history:: Adult Immunizations up to date. - Social history:: Smoking status: Patient denies any tobacco usage or history of. Vital Signs: 08:22 BP 127 / 74; Pulse 88; Resp 16; Temp 97.8(TE); Pulse Ox 100% on R/A; Weight 81.65 kg; hb Height 6 ft. 0 in. ; Pain 6/10; 08:22 Body Mass Index 24.41 (81.65 kg, 182.88 cm) hb 08:22 Pain Scale: Adult hb ED Course: 08:05 Patient arrived in ED. rg4 08:08 Kohi Benítez MD is Attending Physician. jamaal 08:16 Triage completed. hb 08:16 Arm band placed on right wrist. hb Administered Medications: No medications were administered Outcome: 10:26 Discharge ordered by . jamaal 10:51 Patient left the ED. hb Signatures: Khoi Benítez MD MD cha Baxter, Heather, RN RN Asha Nettles 4
[2023-01-22 10:54] VITALS: BP 127/74; TEMP 97.8; O2SAT 100
== END 2023-01-22 10:51 | disposition home or self-care (01) ==
LOC: ER 07:59
DX: J10.1 Influenza due to other identified influenza virus with other respiratory manifestations (principal); Z11.52 Encounter for screening for COVID-19
CPT/HCPCS: 0241U; 87070; 87081; 99281

== ENCOUNTER 2024-04-10 08:15 | Emergency (ER) | payer SELFPAY ==
[2024-04-10 08:55] LABS: SARS-CoV-2 Antigen CONTROL BLUE LINE VIS/BG OK; SARS-CoV-2 Antigen Rapid Res Negative (Negative)
--- NOTE | 2024-04-10 09:07 | EDPHYS ---
Physician Documentation [facility] Name: Jean Carlos Velazquez Age: 28 yrs Sex: Male : 1995 Arrival Date: 04/10/2024 Time: 08:15 Bed 16 Private MD: ED Physician Neri Graza HPI: 04/10 09:05 This 28 yrs old Black Male presents to ER via Ambulatory with complaints of Sore Throat.rn 09:05 The patient presents with sore throat. The patient describes throat pain as raw. Onset: rn The symptoms/episode began/occurred yesterday. Severity of symptoms: At their worst the symptoms were mild, in the emergency department the symptoms are unchanged. Modifying factors: The symptoms are alleviated by nothing, the symptoms are aggravated by nothing. Associated signs and symptoms: Pertinent positives: chills, fever, Sore throat. The patient has experienced similar episodes in the past. Patient reports cough, fever, chills, myalgias and sore throat that began yesterday. No shortness of breath. Reports were symptom is the throat . Historical: - Allergies: 08:26 No Known Allergies; iw - Home Meds: 08:26 None [Active]; iw - PMHx: 08:26 None; iw - PSHx: 08:26 knee; foot; iw - Immunization history:: Adult Immunizations not up to date. - Infectious Disease History:: Denies. - Social history:: Smoking status: Reported history of juuling and/or vaping. - Family history:: not pertinent. - Hospitalizations: : No recent hospitalization is reported. ROS: 09:05 Constitutional: Positive for fever and chills ENT: Positive for sore throat Neck: rn Negative for injury, pain, and swelling, Cardiovascular: Negative for chest pain, palpitations, and edema, Respiratory: Negative for shortness of breath, cough, wheezing, and pleuritic chest pain, Abdomen/GI: Negative for abdominal pain, nausea, vomiting, diarrhea, and constipation, Back: Negative for injury and pain, MS/Extremity: Negative for injury and deformity, Skin: Negative for injury, rash, and discoloration, Neuro: Negative for headache, weakness, numbness, tingling, and seizure, Exam: 09:05 Constitutional: This is a well developed, well nourished patient who is awake, alert, rn and in no acute distress. Head/Face: Normocephalic, atraumatic. ENT: Mild tonsillar hypertrophy with exudate. No stridor, uvula midline Neck: Tender anterior cervical lymphadenopathy. No meningismus Cardiovascular: Regular rate and rhythm. No pulse deficits. Respiratory: Speaking full sentences, unlabored. No increased work of breathing, no retractions or nasal flaring. Vital Signs: 08:25 BP 128 / 87; Pulse 80; Resp 18; Temp 97.7; Pulse Ox 97% on R/A; Weight 95.25 kg; Height iw 6 ft. 0 in. ; Pain 7/10; 09:36 BP 129 / 76; Pulse 84; Resp 18; Pulse Ox 100% on R/A; ld1 08:25 Body Mass Index 28.48 (95.25 kg, 182.88 cm) iw 08:25 Pain Scale: Adult iw MDM: 08:23 Medical Screening Exam initiated rn 09:05 Differential diagnosis: group A strep tonsillitis, influenza, laryngitis, pharyngitis. rn Data reviewed: vital signs, nurses notes, lab test result(s), and as a result, I will discharge patient. Counseling: I had a detailed discussion with the patient and/or guardian regarding the historical points, exam findings, and any diagnostic results supporting the discharge/admit diagnosis, lab results, the need for outpatient follow up, to return to the emergency department if symptoms worsen or persist or if there are any questions or concerns that arise at home. Special discussion: I discussed with the patient/guardian in detail that at this point there is no indication for admission to the hospital. It is understood, however, that if the symptoms persist or worsen the patient needs to return immediately for re-evaluation. 04/10 08:24 Order name: Strep; Complete Time: 09:03 rn 04/10 08:24 Order name: Flu; Complete Time: 09:03 rn 04/10 08:24 Order name: SARS-COV-2 Antigen Rapid; Complete Time: 09:03 rn Administered Medications: No medications were administered Disposition Summary: 04/10/24 09:07 Discharge Ordered Notes: Location: Home rn Problem: new rn Symptoms: have improved rn Condition: Stable rn Diagnosis - Acute tonsillitis, unspecified rn Followup: rn - With: Private Physician - When: As needed - Reason: Recheck today's complaints, Re-evaluation by your physician Discharge Instructions: - Discharge Summary Sheet rn - Influenza, Adult rn - Tonsillitis rn Forms: - Medication Reconciliation Form rn - Antibiotic manager furniture - Prescription Opioid Use rn - Patient Portal Instructions rn - Leadership Thank You Letter rn Prescriptions: - Augmentin 875-125 mg Oral Tablet - take 1 tablet ORAL route every 12 hours for 10 days; 20 tablet; Refills: 0, rn Product Selection Permitted - Tamiflu 75 mg Oral Capsule - take 1 capsule ORAL route every 12 hours for 5 days; 10 capsule; Refills: 0, rn Product Selection Permitted Signatures: Dispatcher [employer] Beatrice Blount RN RN iw Neri Garza MD MD rn
--- NOTE | 2024-04-10 09:07 | ER ---
Nurse's Notes [facility] Name: Jean Carlos Velazquez Age: 28 yrs Sex: Male : 1995 Arrival Date: 04/10/2024 Time: 08:15 Bed 16 Private MD: Diagnosis: Acute tonsillitis, unspecified Presentation: 04/10 08:25 Chief complaint: Patient states: chills, muscle aches, fever, sore throat since iw yesterday , feels like he has strep throat. Coronavirus screen: Client presents with at least one sign or symptom that may indicate coronavirus-19. Ebola Screen: No symptoms or risks identified at this time. Initial Sepsis Screen: Does the patient meet any 2 criteria? No. Patient's initial sepsis screen is negative. Does the patient have a suspected source of infection? No. Patient's initial sepsis screen is negative. Risk Assessment: Do you want to hurt yourself or someone else? Patient reports no desire to harm self or others. Onset of symptoms was April 09, 2024. 08:25 Method Of Arrival: Ambulatory iw 08:25 Acuity: BAMBI 4 iw Historical: - Allergies: 08:26 No Known Allergies; iw - Home Meds: 08:26 None [Active]; iw - PMHx: 08:26 None; iw - PSHx: 08:26 knee; foot; iw - Immunization history:: Adult Immunizations not up to date. - Infectious Disease History:: Denies. - Social history:: Smoking status: Reported history of juuling and/or vaping. - Family history:: not pertinent. - Hospitalizations: : No recent hospitalization is reported. Screenin:35 [facility] ED Fall Risk Assessment (Adult) History of falling in the last 3 months, ld1 including since admission No falls in past 3 months (0 pts) Confusion or Disorientation No (0 pts) Intoxicated or Sedated No (0 pts) Impaired Gait No (0 pts) Mobility Assist Device Used No (0 pt) Altered Elimination No (0 pt) Score/Fall Risk Level 0 - 2 = Low Risk Oriented to surroundings, Hourly rounding (assess needs \T\ fall precautionary measures) done. Abuse screen: Denies threats or abuse. Denies injuries from another. Nutritional screening: No deficits noted. Tuberculosis screening: No symptoms or risk factors identified. Assessment: 08:35 General: Appears in no apparent distress. comfortable, Behavior is calm, cooperative, ld1 appropriate for age. Pain: Denies pain. Neuro: Level of Consciousness is awake, alert, obeys commands, Oriented to person, place, time, situation. Cardiovascular: Capillary refill < 3 seconds Patient's skin is warm and dry. Respiratory: Airway is patent Respiratory effort is even, unlabored, Breath sounds are clear bilaterally. GI: Abdomen is round non-distended. : No signs and/or symptoms were reported regarding the genitourinary system. EENT: Throat is pink. Derm: No signs and/or symptoms reported regarding the dermatologic system. Musculoskeletal: No signs and/or symptoms reported regarding the musculoskeletal system. 09:36 Reassessment: Patient appears in no apparent distress at this time. No changes from ld1 previously documented assessment. Patient and/or family updated on plan of care and expected duration. Pain level reassessed. Patient is alert, oriented x 3, equal unlabored respirations, skin warm/dry/pink. Vital Signs: 08:25 BP 128 / 87; Pulse 80; Resp 18; Temp 97.7; Pulse Ox 97% on R/A; Weight 95.25 kg; Height iw 6 ft. 0 in. ; Pain 7/10; 09:36 BP 129 / 76; Pulse 84; Resp 18; Pulse Ox 100% on R/A; ld1 08:25 Body Mass Index 28.48 (95.25 kg, 182.88 cm) iw 08:25 Pain Scale: Adult iw ED Course: 08:17 Patient arrived in ED. im 08:23 Neri Garza MD is Attending Physician. rn 08:26 Triage completed. iw 08:26 Arm band placed on. iw 08:33 Yolanda Rodgers, JESSICA is Primary Nurse. ld1 08:35 Patient has correct armband on for positive identification. Placed in gown. Bed in low ld1 position. Call light in reach. Side rails up X2. Pulse ox on. NIBP on. Door closed. Noise minimized. Warm blanket given. 08:35 No provider procedures requiring assistance completed. ld1 08:39 SARS-COV-2 Antigen Rapid Sent. cc6 08:39 Flu Sent. cc6 08:39 Strep Sent. cc6 08:39 COVID swab sent to lab. Flu and/or RSV swab sent to lab. Strep swab sent to lab. cc6 09:37 IV discontinued, intact, bleeding controlled, No redness/swelling at site. ld1 Administered Medications: No medications were administered Medication: 08:35 VIS not applicable for this client. ld1 Outcome: :07 Discharge ordered by . jessica 09:36 Discharged to home ambulatory, ld1 09:36 Condition: stable 09:36 Discharge instructions given to patient, Instructed on discharge instructions, follow up and referral plans. Demonstrated understanding of instructions, follow-up care, Prescriptions given X 2, 09:37 Patient left the ED. ld1 Signatures: Beatrice Benjamin, RN RN iw Neri Garza MD MD rn Sims, Lauren, RN RN ld1 Ebony Solano Cassandra cc6
[2024-04-10 10:24] VITALS: TEMP 97.7
[2024-04-10 10:25] VITALS: BP 129/76; O2SAT 100
== END 2024-04-10 09:37 | disposition home or self-care (01) ==
LOC: ER 08:15
DX: J03.90 Acute tonsillitis, unspecified (principal); Z11.52 Encounter for screening for COVID-19
CPT/HCPCS: 36415; 87081; 87804; 87811